=== PATIENT | male | born 2005 | race African-American/Black ===

== ENCOUNTER 2025-09-09 20:48 | Emergency (ER) | payer OTHER, SELFPAY ==
--- NOTE | ~2025-09-09 | XR_ITS ---
XR chest 1V portable INDICATION:Dyspnea . REFERENCE: None FINDINGS: A single AP of the chest demonstrates normal heart size. The lungs are clear. There is no evidence of pneumothorax or pleural effusion. IMPRESSION: No acute pulmonary findings. Reviewed, dictated and finalized at location S. 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
[2025-09-09 20:59] VITALS: BP 136/55; PULSE 78; RESP 18; TEMP 36.6; O2SAT 100
[2025-09-09 22:04] VITALS: BP 118/67; PULSE 74; RESP 18; O2SAT 100
--- NOTE | 2025-09-09 22:28 | ECG_ITS ---
Test Date: 2025-09-09 22:43:12 Measurements Intervals [place] Rate: 54 P: 41 DC: 165 QRS: 81 QRSD: 114 T: 16 QT: 459 QTc: 437 Interpretive Statements SINUS BRADYCARDIA RSR' IN V1 OR V2, PROBABLY NORMAL VARIANT NONSPECIFIC T-WAVE ABNORMALITY No previous ECG available for comparison Electronically Signed On 09-10-2025 08:57:24 DRUMS TEACHER by Otoniel Ly M.D.
[2025-09-09] MEDS: diazePAM INJ (*CRX) 10 MG/2 ML SYRINGE 5 MG IM (22:42)
--- NOTE | 2025-09-09 22:54 | ED.GENADULT ---
HPI - General Adult General Chief complaint: Shortness of Breath/Dyspnea Stated complaint: sob / weak / chills Time Seen by Provider: 09/09/25 22:05 History of Present Illness HPI narrative: This is a 20-year-old male presenting for anxiety. Patient says that he has been on a significant amount of stress at school. 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 He is in his 3rd year. He developed a feeling of overwhelming dread, chest tightness and tingling in his hands and feet. He is still feeling very anxious. He is never had a panic attack before. Related Data Allergies Allergy/AdvReac Type Severity Reaction Status Date / Time No Known Allergies Allergy Verified 09/09/25 20:50 Exam Narrative: APPEARANCE: Anxious appearing Head: atraumatic. EYES: EOMI, NOSE: Atraumatic NECK: Trachea midline RESPIRATORY: No increased rate of breathing clear to auscultation CARDIOVASCULAR: RRR, no peripheral edema ABDOMINAL: Non-distended soft nontender MUSCULOSKELETAl: No obvious deformities NEURO: Alert. Moving 4/4 extremities SKIN:: Warm, dry. Normal color PSYCHIATRIC: Normal affect Course Vital Signs Vital signs: Vital Signs Temperature 97.9 F 09/09/25 20:59 Pulse Rate 78 09/09/25 20:59 Respiratory Rate 18 09/09/25 20:59 Blood Pressure 136/55 L 09/09/25 20:59 Pulse Oximetry 100 09/09/25 20:59 Oxygen Delivery Room Air 09/09/25 20:59 Temperature 97.9 F 09/09/25 20:59 Pulse Rate 74 09/09/25 22:04 Respiratory Rate 18 09/09/25 22:04 Blood Pressure 118/67 09/09/25 22:04 Pulse Oximetry 100 09/09/25 22:04 Oxygen Delivery Room Air 09/09/25 22:04 Medical Decision Making [facility] Narrative Medical decision making narrative: -Course: 20-year-old male presenting with chest tightness, overwhelming fed and tingling in his hands and feet. Physical exam reveals an anxious appearing 20-year-old male. Lung sounds are clear. No other significant findings. Presentation consistent with panic attack. Chest x-ray an EKG within normal limits. Patient was treated with Valium with significant improvement. He will be discharged follow-up his primary care physician for further management. Given prescription for hydroxyzine. Given return precautions. -DDX includes but is not limited to: Anxiety, panic attack, stress, pneumothorax, asthma Vital Signs Vital Signs: Vital Signs Temperature 97.9 F 09/09/25 20:59 Pulse Rate 78 09/09/25 20:59 Respiratory Rate 18 09/09/25 20:59 Blood Pressure 136/55 L 09/09/25 20:59 Pulse Oximetry 100 09/09/25 20:59 Oxygen Delivery Room Air 09/09/25 20:59 Temperature 97.9 F 09/09/25 20:59 Pulse Rate 74 09/09/25 22:04 Respiratory Rate 18 09/09/25 22:04 Blood Pressure 118/67 09/09/25 22:04 Pulse Oximetry 100 09/09/25 22:04 Oxygen Delivery Room Air 09/09/25 22:04 Discharge Plan Discharge Clinical Impression: Panic attack Patient Disposition: Home Condition: Stable Instructions: Antibiotic Form, Anxiety (ED) Additional Instructions: You were seen in the emergency department for a panic attack. Please use hydroxyzine as needed for anxiety. Please follow-up with your primary care physician. Return if you develop chest pain difficulty breathing or any new or worsening sympto Patient Language: Icelandic Prescriptions: New hydroxyzine HCl 25 mg tablet 25 mg PO TID PRN (Reason: anxiety) Qty: 30 0RF Follow-up/Referrals: UNKNOWN,DOCTOR [Primary Care Provider]
[2025-09-09 23:05] VITALS: BP 109/61; PULSE 66; RESP 18; O2SAT 100
--- OUTSIDE RECORDS SUMMARY | 2025-09-10 15:49 | XMS_ITS | Encounter Summary ---
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 Legal Sex Male 11:16 PM CHARGE PREPARATION TECHNICIAN Gender Identity Not on file Sexual Orientation Not on file documented as of this encounter Plan of Treatment Not on file documented as of this encounter Visit Diagnoses Not on filedocumented in this encounter Additional Health Concerns Infection Onset Date Last Indicated Resolved Time COVID-19 Rule Out 07/19/2021 07/19/2021 07/19/2021 9:57 AM CDT COVID-19 Rule Out 07/19/2021 07/19/2021 07/20/2021 12:16 AM CDT documented as of this encounter Care Teams Crm Administrator Relationship Specialty Start Date End Date Radha Pang MD PCP - General FAMILY PRACTICE 11/11/18 documented as of this encounter
--- OUTSIDE RECORDS SUMMARY | 2025-09-10 15:49 | XMS_ITS | Clinical Summary ---
Author Organization [facility] Address [address] [place] [id number] Care Team Providers Care Rigging Loft Mechanic Name Role Phone Radha Pang MD Primary Care Provider [phone] Allergies No known active allergies Medications No known medications Active Problems No known active problems Family History Medical History Relation Comments No Known Problems Father No Known Problems Mother Relation Status Comments Father Mother Social History Tobacco Use Types Packs/Day Years Used Date Smoking Tobacco: Never Smokeless Tobacco: Never Tobacco Cessation:Counseling Given: No Comments:non smoker Alcohol Use Standard Drinks/Week Comments Never 0 (1 standard drink = 0.6 oz pur e alcohol) denies PHQ-2 Answer Date Recorded PHQ-2 Score - If the patient scores above 3, please move on to questions 3-9 0 03/09/2022 Sex and Gender Information Value Date Recorded Sex Assigned at Male 12/22/2024 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 Legal Sex Male 11:16 PM HIMS CLERK Gender Identity Not on file Sexual Orientation Not on file Last Filed Vital Signs Vital Sign Reading Time Taken Comments Blood Pressure 116/62 03/09/2022 6:01 PM CDT Pulse 66 03/09/2022 6:01 PM CDT Temperature 37.3 C (99.2 F) 03/09/2022 6:01 PM CDT Respiratory Rate 16 03/09/2022 6:01 PM CDT Oxygen Saturation 99% 03/09/2022 6:01 PM CDT RA Inhaled Oxygen Concentration - - Weight 79.3 kg (174 lb 12.8 oz) 03/09/2022 6:01 PM CDT Height 182.9 cm (6') 03/09/2022 6:01 PM CDT Body Mass Index 23.71 03/09/2022 6:01 PM CDT Plan of Treatment Health Maintenance Due Date Last Done Comments Hepatitis B Vaccines (4 of 4 - 4-dose series) 2004 2004, 2004, 2004 Annual Physical 02/24/2007 Hepatitis C 02/24/2022 DTaP, Tdap and Td Vaccines (7 - Td or Tdap) 03/30/2025 03/30/2015, 03/23/2008, 06/15/2005, Additional history exists COVID-19 Vaccine ( - season) 2025 06/17/2021, 05/27/2021 Influenza Adult (#1) 2025 09/03/2019, 11/22/2018, 08/16/2016, Additional history exists Pneumococcal Vaccine: Pediatrics (0 to 5 Years) and At-Risk Patients (6 to 49 Years) Aged Out 02/27/2005, 2004, 2004 No longer eligible based on patient's age to complete this topic Hepatitis A Vaccines Completed 03/30/2015, 09/08/20 14 HPV Vaccines Completed 02/26/2018, 04/05, 03/20/2017 Meningococcal Vaccine Completed 04/19/2021, 015 Meningococcal B Vaccine Completed 07/27/2021, 04/19 RSV Immunizations Under 20 Months Aged Out No longer eligible based on patient's age to [place] [address] [facility] Care Teams Rigging Loft Mechanic Relationship Specialty Start Date End Date Radha Pang MD PCP - General FAMILY PRACTICE 11/11/18
--- OUTSIDE RECORDS SUMMARY | 2025-09-10 15:49 | XMS_ITS | Clinical Summary ---
Author Organization [facility] Address [address] [place] [address] Care Team Providers Care Senior Clinical Consultant Name Role Phone Unavailable Primary Care Provider Unavailabl e Immunizations Immunization Administration Dates Next Due Covid-19, Mrna, Lnp-s, Pf, 30 Mcg/0.3 Ml Dose (Mariusz garcía) 06/17/2021,05/27/2021 Social History Tobacco Use Types Packs/Day Years Used Date Smoking Tobacco: Never Assessed Sex and Gender Information Value Date Recorded Sex Assigned at Not on file Legal Sex Male 12:10 PM CDT Gender Identity Not on file Sexual Orientation Not on file Plan of Treatment Health Maintenance Due Date Last Done Comments Hepatitis C Virus (HCV) Screening 2004 Meningococcal B Immunization (2 of 2 - Bexsero SCDM 2-dose series) 10/19/2021 04/19/2021 Influenza Immunization (#1) 07/06/202508/07, 11/22/2018, 08/16/2016, Additional history exists SARS-COV-2 Immunization ( season) 2025 06/17/2021, 05/27/2021 Respiratory Syncytial Virus (RSV) Immunization (Adult) (1 - 1-dose 75+ series) 02/24/2079 Pneumococcal Immunization Combined Aged Out 02/27/2005, 2004, 2004 No longer eligible based on patient's age to complete this topic Measles Mumps Rubella (MMR) Immunization Discontinued 03/23/2008, 06/15/2005 Polio (IPV) Immunization Discontinued 008, 2004, 2004, Additional history exists Varicella Immunization Discontinued 03/23/2008, 2004 DTaP/Tdap/Td Immunization Discontinued 2014, 03/23/2008, 06/15/2005, Additional history exists Hepatitis A Immunization Discontinued 03/30/2015, 11/0 02/2014 TdaP Immunization Completed 03/30/2015 Hepatitis B Immunization Completed 015, 2004, 2004, Additional history exists Human Papillomavirus (HPV) Immunization Completed 02/26/2018, 04/20/2017, 03/20/2017 Meningococcal Immunization (ACWY) Completed 04/19/2021 Rotavirus Immunization Aged Out No lo nger eligible based on patient's age to complete this topic
== END 2025-09-09 23:05 | disposition home or self-care (01) ==
LOC: ANHED 22:59
PROVIDERS: Emergency Provider Emergency Medicine
DX: F41.0 Panic disorder [episodic paroxysmal anxiety] (principal); R94.31 Abnormal electrocardiogram [ECG] [EKG]; R00.1 Bradycardia, unspecified
CPT/HCPCS: 71045; 93005; 96372; 99284; J3360